=== PATIENT | female | born 1955 | race Two or more races ===

== ENCOUNTER 2022-01-07 07:20 | Inpatient (IN) | payer MEDICARE ==
[~2022-01-07] VITALS: Ht 152.4 cm; Wt 67.1 kg
[2022-01-07] MEDS ORDERED: IV NS 0.9% 1,000 ML BAG IV ONE (07:30)
--- NOTE | 2022-01-07 07:30 | NUR ---
IV LINE ESTABLISHED, RHAND 20G
--- NOTE | 2022-01-07 07:37 | NUR ---
WATERSHED MANAGER AT BEDSIDE.
--- NOTE | 2022-01-07 07:37 | NUR ---
PT WAS PLACED ON SEIZURE PRECAUTION
--- NOTE | 2022-01-07 07:38 | NUR ---
COVID SWAB DONE AND SENT TO LAB
--- NOTE | 2022-01-07 07:39 | NUR ---
EKG DONE AT BEDSIDE.
[2022-01-07 07:52] LABS: BASOPHILS % (AUTO) 0.8 % (0.0-2.0); EOSINOPHILS % (AUTO) 6.7 % (0.0-6.0); HEMATOCRIT 41 % (33-45); HEMOGLOBIN 13.5 g/dL (11.5-14.8); LYMPHOCYTES # (AUTO) 2.2 K/uL (0.8-4.8); LYMPHOCYTES % (AUTO) 39.3 % (20.0-44.0); MEAN CORPUSCULAR HGB CONC 33 g/dl (31.0-36.0); MEAN CORPUSCULAR VOLUME 90 fL (82-100); MONOCYTES # (AUTO) 0.3 K/uL (0.1-1.30); NEUTROPHILS # (AUTO) 2.6 K/uL (1.8-8.9); NEUTROPHILS % (AUTO) 47.2 % (43.0-81.0); PLATELET COUNT (AUTO) 313 K/uL (150-450); WHITE BLOOD COUNT (AUTO) 5.6 K/uL (4.3-11.0)
--- NOTE | 2022-01-07 07:57 | NUR ---
PT BROUGHT TO CT DEPT
--- NOTE | 2022-01-07 08:14 | NUR ---
CAME BACK FROM CT SCAN
--- NOTE | 2022-01-07 08:21 | NUR ---
MOVE SHEET SUBMITTED.
--- NOTE | 2022-01-07 08:34 | NUR ---
URINE SPECIMEN SENT TO LAB
[2022-01-07 08:48] LABS: ALANINE AMINOTRANSFERASE 28 U/L (12-78); ALKALINE PHOSPHATASE 57 U/L (46-116); ASPARTATE AMINOTRANSFERASE 20 U/L (15-37); BILIRUBIN,DIRECT 0.1 mg/dL (0.0-0.2); BILIRUBIN,TOTAL 0.3 mg/dL (0.2-1.0); CALCIUM, SERUM 9.4 mg/dL (8.5-10.1); CARBON DIOXIDE 25 mmol/L (21-32); CHLORIDE 102 mmol/L (98-107); CREATININE 0.6 mg/dL (0.6-1.3); GLUCOSE 116 mg/dL (74-106); POTASSIUM 3.5 mmol/L (3.5-5.1); SODIUM SERUM 140 mmol/L (136-145); TOTAL PROTEIN, SERUM 8.2 g/dL (6.4-8.2); UREA NITROGEN, BLOOD 9 mg/dL (7-18)
--- NOTE | 2022-01-07 08:50 | NUR ---
XRAY DONE AT BEDSIDE
[2022-01-07 08:52] LABS: ALCOHOL, BLOOD < 3 mg/dL (0-0)
[2022-01-07 09:02] LABS: BILIRUBIN,URINE NEGATIVE (NEGATIVE); COLOR,URINE YELLOW (YELLOW); LEUKOCYTE ESTERASE ,URINE MODERATE (NEGATIVE); NITRITE, URINE NEGATIVE (NEGATIVE); PH,URINE 6.5 (5.0-8.0); PROTEIN,URINE NEGATIVE (NEGATIVE); UGLUCOSE NEGATIVE (NEGATIVE); UROBILINOGEN,URINE 0.2 EU/dL (0.2)
--- NOTE | 2022-01-07 09:18 | NUR ---
FAMILY NUMBER GIVEN BY [employer] [phone]
--- NOTE | 2022-01-07 10:30 | NUR ---
[facility] CALLED CAR REFINISHER PAGED.
--- NOTE | 2022-01-07 10:34 | NUR ---
DR. MENDOZA SPEAKING WITH DR. DICKENS.
[2022-01-07] MEDS ORDERED: LEVO25TA9 PO (10:57)
[2022-01-07] MEDS ORDERED: ROSU10TA29 PO (10:57)
[2022-01-07] MEDS ORDERED: ERGO500093 PO (10:57)
[2022-01-07 12:19] LABS: BACTERIA,URINE Few /HPF (None Seen)
[2022-01-07] MEDS ORDERED: MAG HYDROX/AL HYDROX/SIMETH 30 ML UDC PO PRN (14:30)
[2022-01-07] MEDS ORDERED: ONDANSETRON HCL/PF 4 MG/2 ML VIAL IVP PRN (14:30)
[2022-01-07] MEDS ORDERED: ACETAMINOPHEN 325 MG TABLET PO PRN (14:30)
[2022-01-07] MEDS ORDERED: LORAZEPAM INJ 2 MG/ML VIAL IV PRN (14:30)
[2022-01-07] MEDS: CEFTRIAXONE 1 G in IV D5W 50 ML IV SCH (15:00)
[2022-01-07] MEDS ORDERED: CEFTRIAXONE 1GM BAG (ER ONLY) 50 ML IV ONE (16:17)
[2022-01-07] MEDS ORDERED: Z GUARD REMEDY 4 OZ OINT TP PRN (17:00)
--- NOTE | 2022-01-07 17:06 | NUR ---
ROOM 321-2
--- NOTE | 2022-01-07 17:12 | NUR ---
REPORT GIVEN TO NURSE MARINE FOR LIZBETH
--- NOTE | 2022-01-07 17:48 | NUR ---
THE PATIENT IS TRANSFERED TO ROOM 321-2 IN STABLE CONDITON AND PER POLICY.
[2022-01-07] MEDS: IV NS 0.9% 1,000 ML IV PRN (18:38)
--- NOTE | 2022-01-07 19:25 | NUR ---
RN NOTE PATIENT WAS TRANSFER FORM ER TO UNIT VIA GURNEY WITH NO SIGNS OF DISTRESS. V/S TAKEN, T:97.6, P: 85. R:18, BP:128/77, O2:98%. PATIENT WAS ORIENTED TO ROOM SET UP AND SHOWED PATIENT HOW TO USED CALL LIGHT. PATIENT AWAKE IN BED RESTING, A/O X 4. NO S/S OF PAIN NOTED AT THIS TIME. ON ROOM AIR, NO DISTRESS OR SHORTNESS OF BREATH NOTED. IV ACCESS, R HAND #20G, INTACT PATENT AND FLUSHING WELL. PATIENT ON EXTERNAL WILDLIFE REFUGE SPECIALIST WITH CURRENT READING OF SR WITH PVC AND HR OF 77. FALL AND SAFETY MEASURES IN PLACE, BED ALARM ON, BED IN LOW AND LOCK POSITION, CALL LIGHT AND TABLE WITHIN EASY REACH, SIDE RAILS UP X2. WILL ENDORSE TO BILLING ASSOCIATE.
--- NOTE | 2022-01-07 19:50 | NUR ---
AERIAL SPRAYER OPENING NOTE RECEIVED PATIENT IN BED; AWAKE, ALERT AND ORIENTED X3-4. BREATHING IS EVEN AND NONLABORED. ON ROOM AIR; TOLERATING WELL. NOT IN ANY FORM OF RESPIRATORY DISTRESS. DENIES ANY PAIN OR DISCOMFORT AT THIS TIME. ON TELEMETRY MONITORING WITH CURRENT READING OF SR HR-76 BPM WITH PVC. ABLE TO MAKE NEEDS KNOWN. SAFETY MEASURES IMPLEMENTED: HEAD OF BED ELEVATED, CALL LIGHT AND TABLE WITHIN EASY REACH, SIDE RAILS UP X2, BED IN LOWEST LOCKED POSITION. WILL CONTINUE TO MONITOR
[2022-01-07 20:00] VITALS: BP 123/82
[2022-01-07] MEDS ORDERED: MAGNESIUM HYDROXIDE 30 ML UDC PO PRN (22:00)
[2022-01-07 23:59] VITALS: BP 122/78
[2022-01-08] VITALS: BP 141/81
[2022-01-08 04:00] VITALS: BP 121/60
[2022-01-08 04:15] VITALS: BP 121/60
[2022-01-08 07:02] LABS: BASOPHILS % (AUTO) 0.4 % (0.0-2.0); EOSINOPHILS % (AUTO) 1.5 % (0.0-6.0); HEMATOCRIT 37 % (33-45); HEMOGLOBIN 12.4 g/dL (11.5-14.8); LYMPHOCYTES # (AUTO) 1.3 K/uL (0.8-4.8); LYMPHOCYTES % (AUTO) 12.3 % (20.0-44.0); MEAN CORPUSCULAR HGB CONC 34 g/dl (31.0-36.0); MEAN CORPUSCULAR VOLUME 89 fL (82-100); MONOCYTES # (AUTO) 0.7 K/uL (0.1-1.30); MONOCYTES % (AUTO) 6.5 % (2.0-12.0); NEUTROPHILS # (AUTO) 8.6 K/uL (1.8-8.9); NEUTROPHILS % (AUTO) 79.3 % (43.0-81.0); PLATELET COUNT (AUTO) 293 K/uL (150-450); RED BLOOD CELL COUNT(AUTO) 4.14 MIL/uL (4.0-5.2); WHITE BLOOD COUNT (AUTO) 10.9 K/uL (4.3-11.0)
--- NOTE | 2022-01-08 07:10 | NUR ---
SHALE PLANER OPERATOR CLOSING NOTE PATIENT IN BED; AWAKE, ALERT AND ORIENTED X3-4. BREATHING EVENLY AND UNLABORED. STABLE ON ROOM AIR. IN NO ACUTE DISTRESS NOTED. DENIES ANY PAIN OR DISCOMFORT AT THIS TIME. ON TELEMETRY MONITORING WITH CURRENT READING OF SR HR 80 BPM. NEEDS ANTICIPATED AND ATTENDED. SAFETY MEASURES IN PLACE: HEAD OF BED ELEVATED, CALL LIGHT AND TABLE WITHIN EASY REACH, SIDE RAILS UP X2, BED IN LOWEST LOCKED POSITION. ENDORSED TO MORNING SHIFT FOR LIZBETH.
[2022-01-08 07:31] LABS: CALCIUM, SERUM 8.8 mg/dL (8.5-10.1); CREATININE 0.5 mg/dL (0.6-1.3); PHOSPHORUS 3.1 mg/dL (2.5-4.9); POTASSIUM 3.7 mmol/L (3.5-5.1)
[2022-01-08 08:00] VITALS: BP 127/79
--- NOTE | 2022-01-08 09:41 | NUR ---
MARINE STEAM FITTER HELPER OPENING NOTES RECEIVED PATIENT IN BED; AWAKE, ALERT AND ORIENTED X 4. BREATHING IS EVEN AND UNLABORED; ON ROOM AIR; TOLERATING WELL. NO RESPIRATORY DISTRESS NOTED. DENIES ANY PAIN OR DISCOMFORT AT THIS TIME. ON TELEMETRY MONITORING WITH CURRENT READING OF SR HR-78 BPM. G HAND G # 20 IV ACCESS PRESENT AND INTACT. ABLE TO MAKE NEEDS KNOWN. SAFETY MEASURES IN PLACE: BED IN LOW POSITION AND LOCKED, RAILS UP X2, CALL LIGHT WITHIN REACH. WILL CONTINUE TO MONITOR PATIENT.
--- NOTE | 2022-01-08 11:05 | NUR ---
SUPERVISOR LEAD REFINERY NOTES PATIENT PICKED UP FOR MRI
[2022-01-08 12:00] VITALS: BP 132/79
[2022-01-08] MEDS ORDERED: GADOTERATE MEGLUMINE 10 MMOL/20 ML VIAL IV ONE (12:03)
[2022-01-08] MEDS: CEFTRIAXONE 1 G in IV D5W 50 ML IV SCH (15:02)
[2022-01-08] MEDS: IV NS 0.9% 1,000 ML IV PRN (15:04)
[2022-01-08 16:00] VITALS: BP 127/76
--- NOTE | 2022-01-08 18:49 | NUR ---
RESPIRATORY THERAPIST CLOSING NOTES PATIENT REMAINS IN BED; AWAKE, ALERT AND ORIENTED X 4. BREATHING IS EVEN AND UNLABORED DURING THE SHIFT. NO RESPIRATORY DISTRESS NOTED. DENIES ANY PAIN OR DISCOMFORT DURING THE DAY. ON TELEMETRY MONITORING WITH CURRENT READING OF SR HR-90 BPM. LFA G # 22 IV ACCESS PRESENT AND INTACT RUNNING NS @ 75 MLS/HR. ABLE TO MAKE NEEDS KNOWN. ALL NEEDS ATTENDED DURING THE DAY. SAFETY MEASURES IN PLACE: BED IN LOW POSITION AND LOCKED, RAILS UP X2, CALL LIGHT WITHIN REACH. WILL ENDORSE TO STOCK OR DELIVERY CLERK NURSE FOR CONTINUITY OF CARE.
--- NOTE | 2022-01-08 19:10 | NUR ---
TELE/RN OPENING NOTE RECEIVED PATIENT RESTING IN BED. AWAKE, ALERT AND ORIENTED X 4. ABLE TO MAKE NEEDS KNOWN. DENIES PAIN AT THIS TIME. CONTINUES ON ROOM AIR WITH NO S/SX OF RESPIRATORY DISTRESS NOTED. IV ACCESS TO LEFT FOREARM #22G INTACT AND PATENT. CONTINUES ON IVF NS @ 75ML/HR. CONTINUES ON IV ABX. CONTINUES ON SEIZURE PRECAUTIONS. CONTINUES ON TELE MONITOR WITH CURRENT READING SR. CALL LIGHT WITHIN REACH. ASPIRATION, FALL AND SAFETY PRECAUTIONS MAINTAINED. ALL NEEDS ATTENDED TO AT THIS TIME.
--- NOTE | 2022-01-09 06:10 | NUR ---
TELE/RN CLOSING NOTE PATIENT CURRENTLY SLEEPING IN BED. ALERT AND ORIENTED X 4. ABLE TO MAKE NEEDS KNOWN. DENIES PAIN AT THIS TIME. CONTINUES ON ROOM AIR WITH NO S/SX OF RESPIRATORY DISTRESS NOTED. IV ACCESS TO LEFT FOREARM #22G INTACT AND PATENT. CONTINUES ON IVF NS @ 75ML/HR. CONTINUES ON IV ABX. CONTINUES ON SEIZURE PRECAUTIONS. CONTINUES ON TELE MONITOR WITH CURRENT READING SR HR 75. CALL LIGHT WITHIN REACH. ASPIRATION, FALL AND SAFETY PRECAUTIONS MAINTAINED. WILL ENDORSE PLAN OF CARE TO ONCOMING SHIFT RN.
[2022-01-09] MEDS: IV NS 0.9% 1,000 ML IV PRN (06:55)
--- NOTE | 2022-01-09 07:28 | NUR ---
RN OPENING NOTE PATIENT ASLEEP IN BED, EASILY AWAKENED ALERT AND ORIENTED X 4. ABLE TO MAKE NEEDS KNOWN. DENIES PAIN AT THIS TIME. CONTINUES ON ROOM AIR WITH NO S/SX OF RESPIRATORY DISTRESS NOTED. IV ACCESS TO LEFT FOREARM #22G INTACT AND PATENT. CONTINUES ON IVF NS @ 75ML/HR. CONTINUES ON IV ABX. CONTINUES ON SEIZURE PRECAUTIONS. CONTINUES ON TELE MONITOR WITH CURRENT READING SR. 72. CALL LIGHT WITHIN REACH. ASPIRATION, FALL AND SAFETY PRECAUTIONS MAINTAINED. ALL NEEDS ATTENDED TO AT THIS TIME. MONITOR / ASSIST
[2022-01-09] MEDS ORDERED: LEVETIRACETAM (500MG) 2,000 MG in IV NS 0.9% 100 ML IV ONE (08:00)
[2022-01-09] MEDS ORDERED: LEVE1000 PO (09:39)
[2022-01-09] MEDS ORDERED: NITR100C6 PO (09:39)
--- NOTE | 2022-01-09 12:41 | NUR ---
RM DISCHARGE NOTE- PT DC AT THIS TIME INTO CARE OF . DC INSTRUCTIONS REVIEWED AND UNDERSTOOD. IV SITE DC'D, ID [id number] REMOVED. ESCORTED OFF UNIT BY THIS RN
[2022-01-09] MEDS ORDERED: LEVETIRACETAM (500MG) 1,000 MG in IV NS 0.9% 100 ML IV SCH (21:00)
== END 2022-01-09 12:30 | disposition home or self-care (01) | DRG 101 ==
LOC: ER 07:36 → TRANSITION 13:53 → TELE 17:22
PROVIDERS: ADMIT Internal Medicine; ATTEND Internal Medicine
DX: R56.9 Unspecified convulsions (principal); N39.0 Urinary tract infection, site not specified; I10 Essential (primary) hypertension; E78.5 Hyperlipidemia, unspecified; Z20.822 Contact with and (suspected) exposure to COVID-19
CPT/HCPCS: 36415; 70450-TC; 70553-TC; 71045-TC; 80048-TC; 80076-TC; 81001; 83605-TC; 83735-TC; 84100-TC; 84484-TC; 85025-TC; 85730-TC; 87040-TC; 87081-TC; 87086-TC; 95819-TC; A9575; C9803; G0378; G0480; J0696; J1953; J7030; J7060

== ENCOUNTER 2024-01-31 03:44 | Emergency (ER) | payer MEDICARE, OTHER ==
[~2024-01-31] VITALS: Ht 154.9 cm; Wt 68.9 kg
[~2024-01-31 03:44] MED LIST: ERGO500093 PO; LEVE1000 PO; LEVO25TA9 PO; NITR100C6 PO; ROSU10TA29 PO
[2024-01-31] MEDS ORDERED: LEVETIRACETAM (500MG) 500 MG/5 ML VIAL IV ONE (03:56)
[2024-01-31] MEDS ORDERED: LEVETIRACETAM (500MG) 500 MG in IV NS 0.9% 100 ML IV SCH (04:00)
[2024-01-31] MEDS: LEVETIRACETAM (500MG) 1,000 MG in IV NS 0.9% 90 ML IV SCH (04:10)
[2024-01-31 04:17] LABS: BASOPHILS % (AUTO) 0.4 % (0.0-2.0); EOSINOPHILS % (AUTO) 0.2 % (0.0-6.0); HEMATOCRIT 39 % (33-45); LYMPHOCYTES # (AUTO) 0.9 K/uL (0.8-4.8); LYMPHOCYTES % (AUTO) 14.3 % (20.0-44.0); MEAN CORPUSCULAR HEMOGLOBIN 30 PG (26.0-33.0); MEAN CORPUSCULAR HGB CONC 34 g/dl (31.0-36.0); MEAN CORPUSCULAR VOLUME 91 fL (82-100); MONOCYTES # (AUTO) 0.3 K/uL (0.1-1.30); MONOCYTES % (AUTO) 4.6 % (2.0-12.0); NEUTROPHILS % (AUTO) 80.5 % (43.0-81.0); PLATELET COUNT (AUTO) 241 K/uL (150-450); RED BLOOD CELL COUNT(AUTO) 4.26 MIL/uL (4.0-5.2); RED CELL DISTRIBUTION WIDTH 14.6 % (11.5-15.0); WHITE BLOOD COUNT (AUTO) 6.2 K/uL (4.3-11.0)
[2024-01-31 04:29] LABS: INR 0.97 (0.91-1.10); PARTIAL THROMBOPLASTIN TIME 23.9 SEC (24.3-34.3); PROTHROMBIN TIME 10.3 SECS (9.2-11.1)
[2024-01-31 04:30] LABS: ALANINE AMINOTRANSFERASE 9 U/L (12-78); ALBUMIN 3.9 g/dL (3.4-5.0); ALKALINE PHOSPHATASE 84 U/L (46-116); ASPARTATE AMINOTRANSFERASE 24 U/L (15-37); BILIRUBIN,DIRECT 0.1 mg/dL (0.0-0.2); BILIRUBIN,TOTAL 0.5 mg/dL (0.2-1.0); CALCIUM, SERUM 9.6 mg/dL (8.5-10.1); CARBON DIOXIDE 23 mmol/L (21-32); CHLORIDE 101 mmol/L (98-107); CREATININE 0.8 mg/dL (0.6-1.3); GLUCOSE 119 mg/dL (74-106); POTASSIUM 4.1 mmol/L (3.5-5.1); SODIUM SERUM 138 mmol/L (136-145); TOTAL PROTEIN, SERUM 8.3 g/dL (6.4-8.2); UREA NITROGEN, BLOOD 14 mg/dL (7-18)
[2024-01-31 04:31] LABS: ALCOHOL, BLOOD < 3 mg/dL (0-10)
[2024-01-31 05:16] LABS: AMPHETAMINE, URINE NEGATIVE (NEGATIVE); BARBITURATE, URINE NEGATIVE (NEGATIVE); BENZODIAZEPINE, URINE NEGATIVE (NEGATIVE); CANNABINOID, URINE NEGATIVE (NEGATIVE); COCCAINE, URINE NEGATIVE (NEGATIVE); OPIATE, URINE NEGATIVE (NEGATIVE); PHENCYCLIDINE SCREEN,URINE NEGATIVE (NEGATIVE)
[2024-01-31 05:50] VITALS: BP 126/84; TEMP 97.9; O2SAT 99
== END 2024-01-31 05:50 | disposition home or self-care (01) ==
LOC: ER 03:51
DX: G40.909 Epilepsy, unspecified, not intractable, without status epilepticus (principal); R41.82 Altered mental status, unspecified; I10 Essential (primary) hypertension; E78.5 Hyperlipidemia, unspecified; Z87.440 Personal history of urinary (tract) infections; Z91.148 Patient's other noncompliance with medication regimen for other reason
CPT/HCPCS: 99285; 96374; 93005; 71045; 85025; 80048; 80076; 36415; 85730; 82962; 80320; 80307; J7030 ×3; J1953 ×3; G0480